=== PATIENT | female | born 1975 | race Caucasian/White ===

== ENCOUNTER → 2016-08-30 | Outpatient (CLI) | payer OTHER, MEDICARE | LOC: M LAB 17:27 | PROVIDERS: ATTEND Obstetrics & Gynecology | DX: O09.521 Supervision of elderly multigravida, first trimester (principal); Z36 Encounter for antenatal screening of mother; Z3A.00 Weeks of gestation of pregnancy not specified ==

== ENCOUNTER → 2016-10-28 | Outpatient (CLI) | payer OTHER, MEDICARE ==
--- NOTE | 2016-10-28 14:56 | REP ---
REASON: anatomy. Multiple ultrasonographic images of the gravid uterus show a single living intrauterine gestation in the cephalic presentation. Doppler interrogation of the heart shows a heart rate of 147 beats per minute. The placenta is anterior and not low lying. The subjective amniotic fluid volume is within normal limits. The cervix measures 4.8 cm in length and is closed. Evaluation of the maternal adnexal spaces showed no abnormalities. BPD 5.2 cm = 21 weeks 5 days HC 18.9 cm = 21 weeks 1 day AC 16.1 cm = 21 weeks 2 days FL 3.5 cm = 21 weeks 1 day The estimated weight is 405 grams, which is at the 33rd percentile for a 54-fkra-0-day gestational age. The structures visualized as unremarkable are as follows: Thalami, cavum septum pellucidum, upper lip, stomach, cord insertion, three vessel umbilical cord, kidneys, urinary bladder, ventricular outflow tracts, and upper extremities. The spine, lower extremities, four-chamber heart, and posterior fossa including the cerebellum were not adequately imaged. IMPRESSION: Single living intrauterine gestation as described above with an estimated gestational age of 21 weeks 2 days via composite criteria with an estimated date of delivery of 03/08/2017 by today's exam. No anomalies were detected, however, I recommend a followup examination to include those anatomical features not well seen today. Signed by Harsh Guadarrama DO 10/28/2016 04:09 P
[2016-10-28 15:04] LABS: BASO % 0.2 % (0.0-1.0); EOS # 0.3 K/mm3 (0.0-0.50); EOS % 2.7 % (0.0-3.0); LARGE UNSTAINED CELL # 0.1 K/mm3 (0.0-0.4); LARGE UNSTAINED CELL % 0.8 % (0.0-4.0); LYMPH # 1.9 K/mm3 (1.5-4.5); LYMPH % 14.9 % (24.0-44.0); MEAN CORPUSCULAR HEMOGLOBIN 29.8 pg (27.0-33.0); MEAN CORPUSCULAR HGB CONC 33.9 g/dl (32.0-36.5); MEAN CORPUSCULAR VOLUME 88.1 fl (80.0-96.0); MONO # 0.4 K/mm3 (0.0-0.8); MONO % 3.4 % (0.0-5.0); NEUTROPHILS # 9.4 K/mm3 (1.8-7.7); PLATELET COUNT, AUTOMATED 261 k/mm3 (150-450); RED CELL DISTRIBUTION WIDTH 13.3 % (11.5-14.5); WHITE BLOOD COUNT 12.1 K/mm3 (4.0-10.0)
[2016-10-28 16:37] LABS: HBsAg Prenatal NEGATIVE (NEGATIVE)
== END ==
LOC: M RAD 13:32
PROVIDERS: ATTEND Obstetrics & Gynecology
DX: O09.511 Supervision of elderly primigravida, first trimester (principal); Z36 Encounter for antenatal screening of mother

== ENCOUNTER → 2016-12-15 | Outpatient (CLI) | payer OTHER ==
[2016-12-15 18:38] LABS: MEAN CORPUSCULAR HEMOGLOBIN 30.9 pg (27.0-33.0); MEAN CORPUSCULAR HGB CONC 34.9 g/dl (32.0-36.5); MEAN CORPUSCULAR VOLUME 88.7 fl (80.0-96.0); RED CELL DISTRIBUTION WIDTH 13.4 % (11.5-14.5); WHITE BLOOD COUNT 11.9 K/mm3 (4.0-10.0)
== END ==
LOC: M LAB 14:50
PROVIDERS: ATTEND Obstetrics & Gynecology
DX: O09.512 Supervision of elderly primigravida, second trimester (principal); Z36 Encounter for antenatal screening of mother; Z3A.00 Weeks of gestation of pregnancy not specified; Z79.899 Other long term (current) drug therapy

== ENCOUNTER → 2016-12-22 | Outpatient (CLI) | payer OTHER ==
--- NOTE | 2016-12-23 02:22 | REP ---
Clinical: Anatomical evaluation. Comparison: 10/28/2016 . Findings: Examination demonstrates a single live intrauterine in transverse (head to maternal left) presentation. motion is identified by technologist. Placenta is noted anteriorly and grade zero without evidence for placenta previa or abruption. Amniotic fluid volume is normal. Cervix measures 5.1 cm in length and appears closed. No evidence for nuchal cord. An anterior 2.4 x 1.5 x 3.4 cm uterine fibroid again noted Gestational age by LMP 29 weeks 3 days with WAYNE 03/06/2017 . Gestational age by current measurements 29 weeks 2 days with WAYNE 03/07/2017 . FHR equals 130 beats per minute. Estimated weight 1332 grams ( 35th percentile). Anatomical assessment demonstrates normal structures including cranium, choroid plexus, cavum, cerebellum/posterior fossa, facial features, lungs, four-chamber heart/ventricular outflow tracts, diaphragm, stomach, cord insertion/three-vessel cord, kidneys/bladder, spine, and extremities. Impression: 1. Single live intrauterine in transverse lie demonstrating appropriate interval growth. In conjunction with prior examination anatomical assessment is complete and normal. 2. Stable 3.4 cm uterine fibroid. Signed by Benton Castro MD 12/23/2016 02:14 A
== END ==
LOC: M RAD 08:01
PROVIDERS: ATTEND Obstetrics & Gynecology
DX: O09.513 Supervision of elderly primigravida, third trimester (principal); Z36 Encounter for antenatal screening of mother; Z3A.29 29 weeks gestation of pregnancy; D25.9 Leiomyoma of uterus, unspecified

== ENCOUNTER → 2017-02-10 | Outpatient (REF) | payer OTHER ==
[~2017-02-10] MED LIST: PRENTAB9 PO
== END ==
LOC: M LAB REF 17:07
PROVIDERS: ATTEND Obstetrics & Gynecology
DX: Z34.83 Encounter for supervision of other normal pregnancy, third trimester (principal)

== ENCOUNTER 2017-02-14 18:23 | Outpatient (CLI) | payer OTHER ==
[~2017-02-14] VITALS: Ht 157.5 cm; Wt 100.2 kg
[2017-02-14] MEDS ORDERED: PRENTAB9 PO (18:45)
[2017-02-14 18:47] VITALS: BP 122/78
== END 2017-02-14 19:45 | disposition home or self-care (01) ==
LOC: M LDO 18:23
PROVIDERS: ATTEND Specialist
DX: O47.1 False labor at or after 37 completed weeks of gestation (principal); Z3A.37 37 weeks gestation of pregnancy

== ENCOUNTER 2017-02-26 00:26 | Outpatient (CLI) | payer OTHER ==
[~2017-02-26] VITALS: Ht 157.5 cm; Wt 99.1 kg
[2017-02-27] MEDS ORDERED: TUMS500C PO (11:28)
[2017-02-27] MEDS ORDERED: ZOLO25TA PO (11:28)
== END 2017-02-26 01:10 | disposition home or self-care (01) ==
LOC: M LDO 00:26
PROVIDERS: ATTEND Obstetrics & Gynecology
DX: O47.1 False labor at or after 37 completed weeks of gestation (principal); Z3A.38 38 weeks gestation of pregnancy

== ENCOUNTER 2017-02-27 11:02 | Inpatient (IN) | payer OTHER ==
[2017-02-27] VITALS (9 sets, daily range): BP systolic 111–143; BP diastolic 59–85
[~2017-02-27] VITALS: Ht 157.5 cm; Wt 99.5 kg
[2017-02-27] MEDS ORDERED: TUMS500C PO (11:28)
[2017-02-27] MEDS ORDERED: ZOLO25TA PO (11:28)
--- NOTE | 2017-02-27 12:49 | HPE ---
DATE OF ADMISSION: 02/27/2017 iLli is a 42-year-old 3, para 2-0-0-2 at 39 weeks gestation with an estimated date of confinement (EDC) of 03/06/2017 based on last menstrual period and confirmed by first trimester ultrasound. She presents to labor and delivery today for social induction of labor per consult with Dr. Gavin Scanlon. She denies any regular contractions, vaginal bleeding and leakage of fluid. The fetus has been active. care was initiated at [facility] in the first trimester. course complicated by a history of depression and anxiety, well controlled with Zoloft 50 mg throughout her , advanced maternal age and obesity. OBSTETRICAL HISTORY: July 1998 at 40 weeks gestation, spontaneous vaginal delivery for an 8 pound 7 ounces female. March 2001 at 40 weeks gestation, spontaneous vaginal delivery for 8 pound 7 ounce male. OBSTETRICAL LABS: Blood type O+. Antibody screen negative. Rubella equivocal. VDRL nonreactive. Urine culture negative. Hep B surface antigen negative, HIV negative. Hep C antibody nonreactive. Gonorrhea and chlamydia negative. She did undergo genetic screening, [place], which showed low probability for aneuploidy and a male fetus. Gestational diabetic screening normal at 116. Her Group B Streptococcus (GBS) is negative. PAST MEDICAL HISTORY: Asthma. Anxiety. Depression. Childhood varicella. SURGERIES: Right and left shoulder reconstruction. FAMILY HISTORY: Noncontributory. SOCIAL HISTORY: The patient is ; however, the father of the baby, her significant other is at bedside and supportive. She is a nonsmoker. Denies alcohol and drug use. Denies history of sexually transmitted infections and denies history of abuse physical, sexual and emotional. ALLERGIES: 1. IMITREX. CURRENT MEDICATIONS: - Zoloft 50 mg - vitamin OBJECTIVE: Temperature 97.9, pulse 91, respirations 18, blood pressure is 137/66. She is alert and oriented times three and she is in no apparent distress, smiling and talkative. heart rate is 130 with moderate variability, positive accelerations, negative decelerations. There is no pattern of regular contractions. Abdomen is gravid, cephalic presentation. Estimated weight 8 to 8-1/2 pounds. Sterile vaginal exam 1 cm dilated, 50% effaced, and -3 station. ASSESSMENT: Intrauterine at 39 weeks gestation. Advanced maternal age. heart rate category 1. PLAN: Admit patient to labor and delivery. Routine labs. Out of bed ad jayashree. Regular diet at this time. Saline lock. Misoprostol 50 mcg p.o. q.4 h for cervical ripening. I did review risks to induction including but not limited to: failed induction, intolerance to labor, increased risk for section. The patient has had all of her questions answered and does desire to proceed with induction at her request in consultation with Dr. Gavin Scanlon. I do anticipate cervical ripening. MTDD
[2017-02-27 12:59] LABS: MEAN CORPUSCULAR HEMOGLOBIN 29.9 pg (27.0-33.0); MEAN CORPUSCULAR HGB CONC 33.8 g/dl (32.0-36.5); MEAN CORPUSCULAR VOLUME 88.4 fl (80.0-96.0); PLATELET COUNT, AUTOMATED 181 10^3/uL (150-450); RED CELL DISTRIBUTION WIDTH 13.1 % (11.5-14.5); WHITE BLOOD COUNT 9.8 10^3/uL (4.0-10.0)
[2017-02-27] MEDS: miSOPROStol 50 MCG 1/2 TAB (S0191) PO SCH ×3 (13:01→21:16)
[2017-02-28] VITALS (21 sets, daily range): BP systolic 105–148; BP diastolic 53–97
[2017-02-28] MEDS ORDERED: FENTANYL 2MCG/ML ROPIVACAINE 0.2% IN 0.9% NACL 200ML IVBAG As Ordered ONE (00:59)
[2017-02-28] MEDS ORDERED: ONDANSETRON 4MG/2ML VIAL (J2405) IV PRN ×2 (02:00→04:15)
[2017-02-28] MEDS ORDERED: diphenhydrAMINE INJ 50MG/ML VIAL (J1200) IV PRN (02:00)
[2017-02-28] MEDS ORDERED: FENTANYL/ROPIVACAINE/NACL BAG 200 ML EPIDURAL SCH (02:00)
[2017-02-28] MEDS ORDERED: LACTATED RINGER'S 1000 ML IV PRN (02:00)
[2017-02-28] MEDS ORDERED: EPIDURAL/PCA KEYS XX PRN (02:00)
[2017-02-28] MEDS ORDERED: NALOXONE INJ 0.4 MG/1 ML VIAL (J2310) IV PRN (02:00)
[2017-02-28] MEDS ORDERED: EPIDURAL COMMENT XX SCH (02:00)
[2017-02-28] MEDS ORDERED: REFRIGERATOR IV KEYS XX PRN (02:00)
[2017-02-28] MEDS ORDERED: ePHEDrine SULFATE 25 MG/5 ML(5MG/ML) SYRINGE IV PRN (02:00)
[2017-02-28] MEDS ORDERED: OXYTOCIN 30 UNITS IN 0.9% NaCl 500ML IV BAG (J2590) As Ordered ONE (03:29)
[2017-02-28] MEDS ORDERED: RHOGAM 300 MCG (1500 IU) INJ (J2790) IM SCH (04:15)
[2017-02-28] MEDS ORDERED: DOCUSATE SODIUM 100 MG CAP PO PRN (04:15)
[2017-02-28] MEDS ORDERED: ACETAMINOPHEN 500 MG TAB PO PRN (04:15)
[2017-02-28] MEDS ORDERED: MEASLES,MUMPS,RUBELLA VACCINE INJ (MMR-II) (90707) SC SCH (04:15)
[2017-02-28] MEDS ORDERED: DIBUCAINE 1% OINTMENT 30GM TOP PRN (04:15)
[2017-02-28] MEDS ORDERED: METHYLERGONOVINE MALEATE 0.2 MG TAB PO PRN (04:15)
[2017-02-28] MEDS ORDERED: LIDOCAINE 1% MDV INJ 50 ML VIAL INFIL ONE (04:15)
[2017-02-28] MEDS ORDERED: OXYTOCIN DRIP 30 UNITS in APPROPRIATE DILUENT 1 EA IV ONE (04:15)
[2017-02-28] MEDS: SERTRALINE HCL 50 MG TAB PO SCH (09:00)
[2017-02-28] MEDS: IBUPROFEN 800 MG TAB PO PRN ×2 (09:36→23:09)
[2017-02-28] MEDS: PRENATAL VITAMINS CHEWABLE TABLET PO SCH (09:37)
[2017-02-28] MEDS ORDERED: INFLUENZA QUADRIVALENT PF VACCINE 0.5ML SYRINGE (90686) IM ONE (10:00)
--- NOTE | 2017-02-28 10:14 | DN ---
DATE OF DELIVERY: 02/28/2017 PRE-DELIVERY DIAGNOSIS: 39 weeks gestation, labor induction. POST DELIVERY DIAGNOSIS: Delivered. PROCEDURE: Spontaneous vaginal delivery. LITHOGRAPHIC PLATE MAKER APPRENTICE: Dr. Gavin Scanlon. ANESTHESIA: Epidural. ESTIMATED BLOOD LOSS: 300 mL. FINDINGS: 7 pound 10 ounce male , 9 and 9. DELIVERY SUMMARY: After 10 minute second stage, the patient had spontaneous delivery of a 7 pound 10 ounce male infant, 9 and 9 under epidural anesthesia. There is no nuchal cord. The shoulders delivered with ease. The cried spontaneously and was handed to the mother. Cord was doubly clamped and cut. Placenta delivered spontaneously and appeared to be intact. The patient received IV Pitocin immediately after delivery of the placenta. Second degree perineal laceration was repaired with #2-0 Chromic under local anesthesia in the usual fashion. Sponge and needle counts were correct.
[2017-03-01 06:12] VITALS: BP 110/60
[2017-03-01] MEDS: PRENATAL VITAMINS CHEWABLE TABLET PO SCH (09:59)
[2017-03-01] MEDS: IBUPROFEN 800 MG TAB PO PRN (09:59)
[2017-03-01] MEDS: SERTRALINE HCL 50 MG TAB PO SCH (09:59)
[2017-03-01] MEDS ORDERED: ACET50TA PO (15:43)
[2017-03-01] MEDS ORDERED: IBUP-1114 PO (15:43)
[2017-03-01] MEDS ORDERED: COLA100C5 PO (15:44)
== END 2017-03-01 17:10 | disposition home or self-care (01) | DRG 775 ==
LOC: M LDI 11:02 → M OBS 02-28 05:11
PROVIDERS: ADMIT Advanced Practice Midwife; ATTEND Advanced Practice Midwife
PROC: 3E0DXGC Introduction of Other Therapeutic Substance into Mouth and Pharynx, External Approach (ICD-10-PCS; 2017-02-27)
PROC: 10E0XZZ Delivery of Products of Conception, External Approach (ICD-10-PCS; principal; 2017-02-28)
PROC: 0KQM0ZZ Repair Perineum Muscle, Open Approach (ICD-10-PCS; 2017-02-28)
DX: O99.344 Other mental disorders complicating childbirth (principal); Z37.0 Single live birth; Z3A.39 39 weeks gestation of pregnancy; F32.9 Major depressive disorder, single episode, unspecified; F41.9 Anxiety disorder, unspecified; Z79.899 Other long term (current) drug therapy; E66.9 Obesity, unspecified; Z88.8 Allergy status to other drugs, medicaments and biological substances; O70.1 Second degree perineal laceration during delivery; O99.214 Obesity complicating childbirth

== ENCOUNTER → 2019-04-29 | Outpatient (CLI) | payer OTHER ==
[~2019-04-29] MED LIST changes: +COLA100C5 PO; +IBUP-1114 PO; +MAPA500T2 PO; +TUMS500C PO; +ZOLO25TA PO
--- NOTE | 2019-04-29 14:33 | REPMRS ---
Patient History The patient states she has not had a clinical breast exam in over a year. Family history of prostate cancer in father, colorectal cancer in maternal grandfather. Digital Woman Screen Mammo: April 29, 2019 - Exam #: [id number] Bilateral CC and MLO view(s) were taken. Technologist: Radha Gutierrez, Technologist Prior study comparison: February 15, 2011, digital mammo diagnostic bilateral, performed at [facility]. FINDINGS: There are scattered fibroglandular densities. There has been no change in the appearance of the mammogram from the prior studies. There is a mild amount of scattered fibroglandular density which is fairly symmetric. There is no interval development of dominant mass, architectural distortion, or grouped microcalcification suggestive of malignancy. 3-D tomosynthesis shows no additional findings. Assessment: BI-RADS/ACR category 1 mammogram. Negative Mammogram. Recommendation Routine screening mammogram of both breasts in 1 year (for women over age 40). This patient's Lifetime Breast Cancer Risk is estimated at 9.7 %. This mammogram was interpreted with the aid of an FDA-approved computer-aided dectection system. Electronically Signed By: Carmelo Wynn MD 04/29/19 [id number]
== END ==
LOC: M WHC 10:18
PROVIDERS: ATTEND Family Medicine
DX: Z12.31 Encounter for screening mammogram for malignant neoplasm of breast (principal)

== ENCOUNTER → 2020-05-06 | Outpatient (CLI) | payer OTHER ==
--- NOTE | 2020-05-06 11:41 | REPMRS ---
Patient History The patient states she has not had a clinical breast exam in over a year. Family history of prostate cancer in father, colorectal cancer in maternal grandfather. No Hormone Replacement Therapy Digital Woman Screen Mammo: May 06, 2020 - Exam #: [id number] Bilateral CC and MLO view(s) were taken. Technologist: Gely Milligan, Technologist Prior study comparison: April 29, 2019, bilateral digital woman screen mammo performed at [facility]. February 15, 2011, digital mammo diagnostic bilateral, performed at [facility]. FINDINGS: There are scattered fibroglandular densities. The Volpara volumetric breast density category is:B. There has been no change in the appearance of the mammogram from the prior studies. There is a mild amount of scattered fibroglandular density which is fairly symmetric. There is no interval development of dominant mass, architectural distortion, or grouped microcalcification suggestive of malignancy. 3-D tomosynthesis shows no additional findings. Assessment: BI-RADS/ACR category 1 mammogram. Negative Mammogram. Recommendation Routine screening mammogram of both breasts in 1 year (for women over age 40). This patient's [facility] Lifetime Breast Cancer Risk is estimated at 9.6 %. This mammogram was interpreted with the aid of an FDA-approved computer-aided dectection system. Electronically Signed By: Carmelo Wynn MD 05/06/20 [id number]
== END ==
LOC: M WHC 09:32
PROVIDERS: ATTEND Family Medicine
DX: Z12.31 Encounter for screening mammogram for malignant neoplasm of breast (principal)